=== PATIENT | female | born 1965 | race Caucasian/White ===

== ENCOUNTER → 2021-02-03 16:14 | Outpatient (CLI) | payer BC, SELFPAY ==
--- NOTE | ~2021-02-03 | MM_ITS ---
EXAMINATION: MM screening [facility] BI w alida HISTORY: Screening mammogram TECHNIQUE: Craniocaudal and mediolateral oblique 3-D tomosynthesis images were obtained and synthetic 2-D images were generated. CAD analysis was submitted and interpreted. COMPARISON: 17/08/2018, 06/05/2017 bilateral screening mammogram examinations BREAST PARENCHYMAL COMPOSITION: The breasts are almost entirely fatty. FINDINGS: There is no evidence of suspicious mass, calcification, or architectural distortion to sugg est malignancy in either breast. There has been no suspicious interval change. IMPRESSION: 1. No mammographic evidence of malignancy. 2. Recommend routine screening mammography in one year. BI-RADS Category 1: Negative Reviewed, dictated and finalized at location A. ERY ASSISTANT
== END ==
PROVIDERS: Visit Provider Obstetrics & Gynecology
DX: Z12.31 Encounter for screening mammogram for malignant neoplasm of breast (principal)
CPT/HCPCS: 77063; 77067

== ENCOUNTER → 2022-08-08 15:43 | Outpatient (CLI) | payer BC, SELFPAY ==
--- NOTE | ~2022-08-08 | MM_ITS ---
EXAMINATION: MM screening [facility] BI w alida HISTORY: Screening mammogram TECHNIQUE: Craniocaudal and mediolateral oblique 3-D tomosynthesis images were obtained and synthetic 2-D images were generated. CAD analysis was submitted and interpreted. COMPARISON: 02/03/2021, 08/27/2018, 06/05/2017 BREAST PARENCHYMAL COMPOSITION: The breasts are almost entirely fatty. FINDINGS: No suspicious mass, calcification, or architectural distortion are identified in either tomasz ast to suggest malignancy. There has been no suspicious interval change. IMPRESSION: 1. No mammographic evidence of malignancy. 2. Recommend routine screening mammography in one year. BI-RADS Category 1: Negative Reviewed, dictated and finalized at location A.
== END ==
PROVIDERS: PCP Obstetrics & Gynecology; Visit Provider Obstetrics & Gynecology
DX: Z12.31 Encounter for screening mammogram for malignant neoplasm of breast (principal)
CPT/HCPCS: 77063; 77067

== ENCOUNTER 2023-08-22 08:51 | Outpatient (CLI) | payer BC, SELFPAY ==
--- NOTE | ~2023-08-22 | MM_ITS ---
EXAMINATION: MM screening [facility] w al[place] HISTORY: Screening TECHNIQUE: Craniocaudal and mediolateral oblique 3-D tomosynthesis images were obtained and synthetic 2-D images were generated. CAD analysis was submitted and interpreted. COMPARISON: Comparison to multiple prior studies sequentially, with oldest reviewed study dated 04/08. BREAST PARENCHYMAL COMPOSITION: The breasts are almost entirely fatty. FINDINGS: There is no evidence of suspicious mass, calcification, or architectural distortion to sugg est malignancy in either breast. There has been no suspicious interval change. IMPRESSION: 1. No mammographic evidence of malignancy. 2. Recommend routine screening mammography in one year. BI-RADS Category 1: Negative Reviewed, dictated and finalized at location B.
== END 2023-08-22 08:52 | disposition home or self-care (01) ==
PROVIDERS: PCP Obstetrics & Gynecology; Visit Provider Obstetrics & Gynecology
DX: Z12.31 Encounter for screening mammogram for malignant neoplasm of breast (principal)
CPT/HCPCS: 77063; 77067

== ENCOUNTER 2024-06-17 10:50 | Outpatient (CLI) | payer BC, SELFPAY ==
--- OUTSIDE RECORDS SUMMARY | 2024-06-17 12:22 | XMS_ITS | Referral Summary ---
Author Organization [address] Address [address] [place] [id number] Care Team Providers Care Hospitality Associate Name Role Phone Abraham Velázquez MD Primary Care Provider [phone] Allergies Active Allergy Reactions Criticality Noted Date Comments Ibuprofen Hives Medium 01/10/2021 Medications cholestyramine (QUESTRAN) 4 gram packet USE 1 PACKET IN LIQUID DIRECTED ONCE TO TWICE DAILY IF NEEDED. 1 Active cetirizine (ZyrTEC) 10 mg tablet Take 10 mg by mouth daily Active cyanocobalamin (Vitamin B-12) 250 mcg tablet Take 250 mcg by mouth daily Active cholecalciferol (cholecalcifero l) 400 unit capsule Active wheat dextrin 3 gram/3.8 gram powder Take by mouth Active fluticasone propionate (FLONASE) 50 mcg/actuation nasal sprayIndication s:Allergic Rhinitis Administer 2 sprays into each nostril daily 18.2 mL 3 1 Active famotidine (PEPCID) 40 mg tablet Take 40 mg by mouth daily 2 Active Lacto.acidophil us-Bif.animalis 32 billion cell capsule Take 1 tablet by mouth daily Active pantoprazole DR (PROTONIX) 40 mg EC tabletIndicatio ns:Laryngophary ngeal reflux (LPR) Take 1 tablet (40 mg total) by mouth 2 (two) times a day 60 tablet 3 2 Active Active Problems Problem Noted Date Diagnosed Date Post-nasal drip 03/07/2021 Laryngopharyngeal reflux (LPR) 01/10/2021 Social History Tobacco Use Types Packs/Day Years Used Date Smoking Tobacco: Former Smokeless Tobacco: Never Personal Safety Answer Date Recorded Getting School Help Needed Not on file 06/08 Comments Unknown Sex and Gender Information Value Date Recorded Sex Assigned at Not on file Legal Sex Female 7:59 PM [address] Gender Identity Not on file Sexual Orientation Not on file Last Filed Vital Signs Vital Sign Reading Time Taken Comments Blood Pressure - - Pulse - - Temperature 36.2 C (97.2 F) 06/06/2021 1:38 PM CDT Respiratory Rate 17 01/10/2021 1:58 PM CDT Oxygen Saturation - - Inhaled Oxygen Concentration - - Weight 95.3 kg (210 lb) 06/06/2021 1:38 PM CDT Height 170.2 cm (5' 7 ) 06/06/2021 1:38 PM CDT Body Mass Index 32.89 06/06/2021 1:38 PM CDT Plan of Treatment Not on file Insurance [facility] Care Teams Hospitality Associate Relationship Specialty Start Date End Date Abraham Velázquez MD [address] [address] [place], [place] [id number] PCP - General Internal Medicine 01/02/21
--- OUTSIDE RECORDS SUMMARY | 2024-06-17 12:22 | XMS_ITS | Encounter Summary ---
Author Organization [facility] Address Formerly [facility] [place] [address] Care Team Providers Care Plate Preparer Name Role Phone Ronald Mckeon MD Primary Care Provider [phone] Sarita Munguia Primary Care Provider [phone] Encounter Details Date Type Department Care Team (Late st Contact Info) Description 07/27/2020 Prep for Procedure [facility] [address] [place] [address] Yaron García MD [address] [facility] [address] [place] [address] Social History Tobacco Use Types Packs/Day Years Used Date Smoking Tobacco: Former Cigarettes 0 07/28/1979 - 07/27/1981 Smokeless Tobacco: Never Humiliation, Afraid, Rape, and Kick questionnair e Answer Date Recorded Within the last year, have y ou been afraid of your partner or ex-partner? Patient declined 07/27/2020 Within the last year, have y ou been humiliated or emotionally abused in other ways by your partner or ex-partner? Patient declined 07/27/2020 Within the last year, have y ou been kicked, hit, slapped, or otherwise physically hurt by your partner or ex-partner? Patient declined 07/27/2020 Within the last year, have y ou been raped or forced to have any kind of sexual activity by your partner or ex-partner? Patient declined 07/27/2020 Social Connection and Isolation Panel [NHANES] A nswer Date Recorded In a typical week, how many times do you talk on the phone with family, friends, or neighbors? Patient declined 07/27/2020 How often do you get togethe r with friends or relatives? Patient declined 07/27/2020 How often do you attend yarsanism or buddhism serv ices? Patient declined 07/27/2020 Do you belong to any clubs o r organizations such as yarsanism groups, unions, fraternal or athletic groups, or school groups? Patient declined 07/27/2020 How often do you attend meet ings of the clubs or organizations you belong to? Patient declined 07/27/2020 Are you , , di vorced, , never , or living with a partner? Patient declined 07/27/2020 Overall Financial Resource Strain (CARDIA) Answe r Date Recorded How hard is it for you to pa y for the very basics like food, housing, medical care, and heating? Not hard at all 07/27/2020 [facility] - Occupational Stress Questionnaire Answer Date Recorded Do you feel stress - tense, restless, nervous, or anxious, or unable to sleep at night because your mind is troubled all the time - these days? Not at all 07/27/2020 Exercise Vital Sign Answer Date Recorde d On average, how many days pe r week do you engage in moderate to strenuous exercise (like a brisk walk)? 0 days 07/27/2020 On average, how many minutes do you engage in exercise at this level? 0 min 07/27/2020 Hunger Vital Sign Answer Date Recorded Within the past 12 months, y ou worried that your food would run out before you got the money to buy more. Never true 07/28/19 21 Within the past 12 months, t he food you bought just didn't last and you didn't have money to get more. Never true 07/27/2020 PRAPARE - Transportation Answer Date Re corded In the past 12 months, has l ack of transportation kept you from medical appointments or from getting medications? No 07/2020 In the past 12 months, has l ack of transportation kept you from meetings, work, or from getting things needed for daily living? No 07/27/2020 Comments Unknown Sex and Gender Information Value Date Recorded Sex Assigned at Not on file Legal Sex Female 7:35 PM CDT Gender Identity Not on file Sexual Orientation Not on file documented as of this encounter Plan of Treatment Not on file documented as of this encounter Results * PRE-SURGICAL/PRE-PROCEDURE CORONAVIRUS (COVID 19) (08/01/2020 7:58 AM CDT) CORONAVIRUS SARS COV 2 PCR (RESP) NOT DETECTED NOT DETECTED 08/02/2020 3:26 PM CDT Clinical Data [facility] Comment: A Not Detected (negative) test result for this test means that SARS-CoV-2 RNA was not present in the specimen above the limit of detection. A negative result does not rule out the possibility of COVID-19 and should not be used as the sole basis for treatment or patient management decisions. If COVID-19 is still suspected, based on exposure history together with other clinical findings, re-testing should be considered in consultation with public health authorities. Laboratory test results should always be considered in the context of clinical observations and epidemiological data in making a final diagnosis and patient management decisions. This patient specimen was tested using an FDA EUA pooling method. Patient specimens with low viral loads may not be detected in sample pools due to the decreased sensitivity of pooled testing. Please review the Fact Sheets and FDA authorized labeling available for health care providers and patients using the following websites: https://www.[employer]com/home/Covid-19/HCP/NAAT/fact-sheet2 https://www.[employer]/home/Covid-19/Patients/NAAT/ fact-sheet2 This test has been authorized by the FDA under an Emergency Use Authorization (EUA) for use by authorized laboratories. Due to the current public health emergency, [facility] is receiving a high volume of samples from a wide variety of swabs and media for COVID-19 testing. In order to serve patients during this public health crisis, samples from appropriate clinical sources are being tested. Negative test results derived from specimens received in non-commercially manufactured viral collection and transport media, or in media and sample collection kits not yet authorized by FDA for COVID-19 testing should be cautiously evaluated and the patient potentially subjected to extra precautions such as additional clinical monitoring, including collection of an additional specimen. Methodology: Nucleic Acid Amplification Test (NAAT) includes RT-PCR or TMA Additional information about COVID-19 can be found at the [facility] website: www.[employer]/Covid19. Test performed at [facility] [address] [place] [address] Director: GILLES MONTANA DO,MPH FIRST TEST UNKNOWN 08/01/2020 7:44 AM CDT [facility] EMPLOYED IN HEALTHCARE NO 08/01/2020 7:44 AM CDT [facility] SYMPTOMATIC DEFINED BY CDC NO 08/01/2020 7:44 AM CDT [facility] DATE OF SYMPTOM ONSET UNKNOWN 08/04/2020 10:13 AM CDT [facility] HOSPITALIZATION STATUS NO 08/01/2020 7:44 AM CDT [facility] PATIENT IN ICU NO 08/01/2020 7:44 AM CDT [facility] RESIDENT OF [facility] NO 08/01/2020 7:44 AM CDT [facility] NOT 08/01/2020 7:44 AM CDT [facility] PATIENT'S RACE WHITE OR 08/01/2020 7:44 AM CDT [facility] ETHNICITY NONHISPANIC 08/01/2020 7:44 AM CDT [facility] SOURCE (QST) NASOPHARYNGEAL SWAB 08/01/2020 7:44 AM CDT [facility] NASOPHARYNGEAL SWAB / Unknown 08/01/2020 7:58 AM CDT us Yaron García MD MICROBIOLOGY - GENERAL ROHAN TRAORE Final Result [facility] [address] [place] [address], [facility] [employer] [facility] [address] [place] [address], documented in this encounter Visit Diagnoses Diagnosis Pre-op testing- Primary Preoperative examination, unspecified documented in this encounter Additional Health Concerns Infection Onset Date Last Indicated Resolved Time COVID-19 Rule Out 08/01/2020 08/01/2020 08/02/2020 3:26 PM CDT COVID-19 Rule Out 04/17/2021 04/17/2021 04/18/2021 6:02 PM RETAIL SELLING SPECIALIST COVID-19 Confirmed 04/17/2021 04/17/2021 12:32 AM RETAIL SELLING SPECIALIST documented as of this encounter Care Teams Plate Preparer Relationship Specialty Start Date End Date Ronald Mckeon MD [address] [address] PCP - General FAMILY PRACTICE 08/29/18 07/31/20 Sarita Munguia PA [address] [place] [id number] PCP - General PHYSICIAN DIRECTOR SOCIAL WELFARE 06/01/24 documented as of this encounter
--- OUTSIDE RECORDS SUMMARY | 2024-06-17 12:22 | XMS_ITS | Clinical Summary ---
Author Organization [facility] Address [facility] [place] [address] Care Team Providers Care Radiological Health Specialist Name Role Phone Sarita Munguia Primary Care Provider [phone] Allergies Active Allergy Reactions Criticality Noted Date Comments Ibuprofen Hives 07/27/2020 Medications cetirizine (ZYRTEC ALLERGY) 10 MG tablet Take by mouth nightly. Active pseudoephedrine 30 MG tablet Take 30 mg by mouth daily as needed for Congestion. Active vitamin B-12 (CYANOCOBALAMIN ) 1000 mcg tablet Take 1,000 mcg by mouth daily. Takes sublingual Active Cholecalciferol (VITAMIN D3) 50 MCG (2000 UT) Tab Take 1 tablet by mouth daily. Active fiber Powder Take 5 g by mouth daily. Takes 1/2 teaspoon daily Active Probiotic Product ([employer]) Cap Take 1 tablet by mouth daily. Active Active Problems Problem Noted Date Diagnosed Date Neck pain 10/23/2018 Allergies Encounters Date Type Department Care Team Description 06/10/2024 7:48 AM CDT - 06/10/2024 11:59 PM CDT Hospital Encounter [facility] Ultrasound [address] [place] [address] Crystal Amato PA-C Discharge Disposition: Home or Self Care (Routine Discharge) 06/10/2024 Travel 06/01/2024 7:12 PM CDT - 06/01/2024 9:53 PM CDT Emergency [facility] Emergency Room [address] [place], [place] [id number] Ruddy Elizabeth MD Hypertension Discharge Disposition: Home or Self Care (Routine Discharge) 06/01/2024 Travel from Last 3 Months Social History Tobacco Use Types Packs/Day Years [...] declined 07/27/2020 How often do you attend jewish or mosque serv ices? Patient declined 07/27/2020 Do you belong to any clubs o r organizations such as jewish groups, unions, fraternal or athletic groups, or [...] and heating? Not hard at all 07/27/2020 [facility] [place] [facility] Occupat ional Health - Occupational Stress [...] needed for daily living? No 07/27/2020 Comments No Sex and Gender Information Value Date Recorded Sex Assigned at Not on file Legal Sex Female 7:35 PM CDT Gender Identity Not on file Sexual Orientation Not on file Last Filed Vital Signs Vital Sign Reading Time Taken Comments Blood Pressure 163/88 06/01/2024 9:30 PM CDT Pulse 123 06/01/2024 9:30 PM CDT Temperature 36.4 C (97.6 F) 06/01/2024 9:30 PM CDT Respiratory Rate 22 06/01/2024 9:30 PM CDT Oxygen Saturation 98% 06/01/2024 9:30 PM CDT Inhaled Oxygen Concentration - - Weight 92.5 kg (204 lb) 06/01/2024 7:12 PM CDT Height 154.3 cm (5' 0.75 ) 06/01/2024 7:12 PM CD T Body Mass Index 38.86 06/01/2024 7:12 PM CDT Plan of Treatment Health Maintenance Due Date Last Done Comments Cervical Cancer Screening Pa p Smear (Age 30 to 64) Every 3 Years 1965 Annual Physical 11/19/1966 Hepatitis C 11/19/1981 DTaP, Tdap and Td Vaccines ( 1 - Tdap) 11/19/1982 Cervical Cancer Screening Pa p with HPV Testing (Age 30 to 64) Every 5 Years 11/19/1993 Cervical Cancer Screening wi th HPV 11/19/1993 Mammogram Screening 2003 Zoster Vaccines (1 of 2) 11/19/2013 COVID-19 Vaccine (2023-2 5 season) 2023 Influenza Adult (#1) 2023 Colorectal Cancer Screening Colonoscopy (10 Years) 08/04/2030 08/04/2020, 08/04/2020 RSV Immunization or 60+ Years (1 - 1-dose 75+ series) 11/19/2038 Meningococcal B Vaccine Aged Out No l onger eligible based on patient's age to complete this topic Meningococcal Vaccine Aged Out No francisco j kavya eligible based on patient's age to complete this topic Pneumococcal Vaccine: Pediatrics (0 to 5 Years) and At-Risk Patients (6 to 64 Years) Aged Out No longer eligible b ased on patient's age to complete this topic RSV Immunizations Under 20 Months Aged Out No longer eligible b ased on patient's age to complete this topic Procedures Procedure Name Priority Date/Time Associated Diagnosis Comments US RANDEE DUPLEX UP EXT RT Routine 06/10/2024 8:44 AM CDT Pain in left arm Other specified abnormal findings of blood chemistry CTA CHEST PE PROTOCOL STAT 06/01/2024 9:03 PM CDT D-DIMER, QUANTITATIVE STAT 06/01/2024 8:08 PM CDT TROPONIN, QUANT STAT 06/01/2024 8:08 PM CDT COMPREHENSIVE METABOLIC PANEL STAT 06/01/2024 8:08 PM CDT CBC W/DIFF AUTOMATED STAT 06/01/2024 8:08 PM CDT ECG 12-LEAD Routine 06/01/2024 7:22 PM CDT COLONOSCOPY Routine 08/04/2020 7:58 AM CDT from Last 3 Months or Most Recently Relevant to Health Maintenance Results * US RANDEE DUPLEX UP EXT RT (06/10/2024 8:44 AM CDT) Anatomical Region Laterality Modality NA Ultrasound 06/11/2024 7:28 AM CDT Impressions 06/11/2024 7:30 AM CDT IMPRESSION: No evidence of right upper extremity DVT. Ordered By: CRYSTAL AAMTO Interpreted By: Mahesh Schultz, 06/11/2024 7:28 AM Narrative 06/11/2024 7:30 AM CDT [facility] [id number] [place] [address]. [place] [address] IMAGING STUDIES: US RANDEE DUPLEX UP EXT RT DATE: 06/10/2024 7:51 AM CLINICAL HISTORY: Pain in right arm . COMPARISON: No Comparisons. FINDINGS: No evidence of DVT within the right jugular vein, right subclavian vein or right axillary vein. No evidence of DVT within the right brachial vein, basilic vein or cephalic vein. No DVT within the right radial vein or right ulnar vein. Procedure Note Antonio Schultz MD - 06/11/2024 [facility] [id number] [place] [address]. [place] [address] IMAGING STUDIES: US RANDEE DUPLEX UP EXT RT DATE: 06/10/2024 7:51AM CLINICAL HISTORY: Pain in right arm . COMPARISON: No Comparisons. FINDINGS: No evidence of DVT within the right jugular vein, right subclavian veinor right axillary vein. No evidence of DVT within the right brachial vein, basilic vein orcephalic vein. No DVT within the right radial vein or right ulnar vein. IMPRESSION: No evidence of right upper extremity DVT. Ordered By: CRYSTAL AMATO Interpreted By: Mahesh Schultz, 06/11/2024 7:28 AM us Crystal Amato PA-Cassy ULTRASOUND Final Resu lt * CTA CHEST PE PROTOCOL (06/01/2024 9:03 PM CDT) Anatomical Region Laterality Modality Chest Computed Tomogra phy 06/01/2024 9:13 PM CDT Impressions 06/01/2024 9:24 PM CDT IMPRESSION: 1. No pulmonary embolus. 2. Mosaic attenuation seen throughout the lungs which may represent air trapping/small airways disease. Dictated By: Horace Fallon MD on 06/01/2024 9:13 PM The attending radiologist has reviewed the image(s) and agrees with the content of this report. Ordered By: RUDDY ELIZABETH Interpreted By: Horace Fallon MD, 06/01/2024 9:13 PM Narrative 06/01/2024 9:24 PM CDT [facility] [address] [facility]. [place] [id number] Examination: CTA CHEST PE PROTOCOL Exam time: 06/01/2024 8:52 PM Clinical history: Palpitations, elevated d-dimer. Comparison: CTA chest 03/29/2012. Technique: A CTA of the chest was performed according to the pulmonary embolism protocol after uneventful administration of 75 mL Isovue-370. Coronal MIPS were created and reviewed. Coronal and sagittal reformatted images were reviewed. A dose lowering technique was used for this procedure, which may include, but is not limited to, dose reduction technique, automated exposure control, iterative reconstruction, ALARA (As Low As Reasonably Achievable), or Image Gently techniques. Findings: The pulmonary arteries are well-opacified. No filling defects are seen within the pulmonary arteries. The aorta and main pulmonary arteries are normal in caliber. No focal consolidation is seen within the lungs. There is mosaic attenuation which can be seen with small airways disease and/or air trapping. No pleural effusions. No central airway abnormality. The heart is normal in size. No pericardial effusion. No thoracic lymphadenopathy is seen. There are calcified left hilar lymph nodes from old granulomatous disease. No acute abnormality seen in the visualized upper abdomen. The gallbladder surgically absent. Benign calcified granulomas are seen throughout the spleen. Colonic diverticula are noted in the visualized colon. Partially visualized cervical fusion hardware. No acute osseous abnormality. No destructive osseous lesion. Multilevel spondylosis is seen throughout the visualized spine. Procedure Note Tuan Saldivar MD - 06/01/2024 [facility] [address] [place] [address] Examination: CTA CHEST PE PROTOCOL Exam time: 06/01/2024 8:52 PM Clinical history: Palpitations, elevated d-dimer. Comparison: CTA chest 03/29/2012. Technique: A CTA of the chest was performed according to the pulmonaryembolism protocol after uneventful administration of 75 mL Isovue-370.Coronal MIPS were created and reviewed. Coronal and sagittal reformattedimages were reviewed. A dose lowering technique was used for thisprocedure, which may include, but is not limited to, dose reductiontechnique, automated exposure control, iterative reconstruction, ALARA (AsLow As Reasonably Achievable), or Image Gently techniques. Findings: The pulmonary arteries are well-opacified. No filling defects are seenwithin the pulmonary arteries. The aorta and main pulmonary arteries arenormal in caliber. No focal consolidation is seen within the lungs. There is mosaicattenuation which can be seen with small airways disease and/or airtrapping. No pleural effusions. No central airway abnormality. The heartis normal in size. No pericardial effusion. No thoracic lymphadenopathy isseen. There are calcified left hilar lymph nodes from old granulomatousdisease. No acute abnormality seen in the visualized upper abdomen. The gallbladdersurgically absent. Benign calcified granulomas are seen throughout thespleen. Colonic diverticula are noted in the visualized colon. Partially visualized cervical fusion hardware. No acute osseousabnormality. No destructive osseous lesion. Multilevel spondylosis is seenthroughout the visualized spine. IMPRESSION: 1. No pulmonary embolus. 2. Mosaic attenuation seen throughout the lungs which may represent airtrapping/small airways disease. Dictated By: Horace Fallon MD on 06/01/2024 9:13 PM The attending radiologist has reviewed the image(s) and agrees with thecontent of this report. Ordered By: RUDDY ELIZABETH Interpreted By: Horace Fallon MD, 06/01/2024 9:13 PM us Ruddy Elizabeth MD CT Final Resu lt * (ABNORMAL) COMPREHENSIVE METABOLIC PANEL (06/01/2024 8:08 PM CDT) [facility] GLUCOSE 105(H) 70 - 99 MG/DL 06/01/2024 8:35 PM CDT [facility] BUN 7 7 - 18 MG/DL 06/01/2024 8:35 PM CDT [facility] CREATININE S/P/B 0.74 0.55 - 1.02 MG/DL 06/01/2024 8:35 PM CDT [facility] SODIUM S/P/B 141 136 - 145 MMOL/L 06/01/2024 8:35 PM CDT [facility] POTASSIUM S/P/B 3.9 3.5 - 5.1 MMOL/L 06/01/2024 8:35 PM CDT [facility] CHLORIDE S/P/B 102 100 - 108 MMOL/L 06/01/2024 8:35 PM T [facility] CO2 27.8 21 - 32 MMOL/L 06/01/2024 8:35 PM CDT [facility] CALCIUM S/P/B 9.3 8.5 - 10.1 MG/DL 06/01/2024 8:35 PM T [facility] BILIRUBIN TOTAL S/P/B 0.4 0.2 - 1.2 MG/DL 06/01/2024 8:35 PM T [facility] TOTAL PROTEIN S/P/B 7.5 6.4 - 8.2 G/DL 06/01/2024 8:35 PM T [facility] ALBUMIN S/P/B 4.0 3.4 - 5.0 G/DL 06/01/2024 8:35 PM T [facility] AST 21 15 - 37 U/L 06/01/2024 8:35 PM T [facility] ALT 21 14 - 55 U/L 06/01/2024 8:35 PM CDT [facility] ALKALINE PHOSPHATASE S/P/B 109 50 - 136 U/L 06/01/2024 8:35 PM CDT [facility] ANION GAP 11.2 5 - 15 MMOL/L 06/01/2024 8:35 PM CDT [facility] BUN CREATININE RATIO 9.5 6 - 26 06/01/2024 8:35 PM CDT [facility] A/G RATIO 1.1 1.0 - 2.0 RATIO 06/01/2024 8:35 PM CDT [facility] GFR ESTIMATE >90 >90 ML/MIN/1.7 3 M2 06/01/2024 8:35 PM CDT [facility] Comment: NOTE: eGFR is not calculated for patients <18 years of age. This is an estimated GFR calculation using the new CKD EPI creatinine equation without race and so does not require a correction factor for race. This estimated GFR should not be used for calculating drug doses. 06/01/2024 8:08 PM CDT Ruddy Elizabeth MD LABORATORY Final Resu lt [facility] [address] [place] [address], * (ABNORMAL) D-DIMER, QUANTITATIVE (06/01/2024 8:08 PM CDT) [facility] D-DIMER 997(H) 0 - 500 ng{FEU}/mL 06/01/2024 8:22 PM CDT [facility] Comment: D-Dimer values less than or equal to 500 ng/mL FEU have a negative predictive value of >95% for exclusion of deep vein thrombosis and pulmonary embolism. In patients over 50 (who tend to have higher normal baseline D-Dimer values), recent studies suggest age-adjusted D-Dimer cutoff values (calculated as: age [years] x 10 ng/mL) result in equivalent outcomes and no additional false negative findings. 06/01/2024 8:08 PM CDT us Ruddy Elizabeth MD LABORATORY Final Resu lt [facility] [address] [place] [address], * (ABNORMAL) CBC W/DIFF AUTOMATED (06/01/2024 8:08 PM CDT) WBC 10.38 4.4 - 11.0 x10'3/uL 06/01/2024 8:14 PM CDT [facility] RBC 4.42(L) 4.50 - 5.10 x10'6/uL 06/01/2024 8:14 PM CDT [facility] HGB 13.0 12.3 - 15.3 G/DL 06/01/2024 8:14 PM CDT [facility] HCT 39.7 35.9 - 44.6 % 06/01/2024 8:14 PM CDT [facility] MCV 89.8 80.0 - 96.0 FL 06/01/2024 8:14 PM CDT [facility] MCH 29.4 25.3 - 30.9 PG 06/01/2024 8:14 PM CDT [facility] MCHC 32.7 31.0 - 34.1 G/DL 06/01/2024 8:14 PM CDT [facility] RDW 13.3 12.4 - 15.1 % 06/01/2024 8:14 PM CDT [facility] PLT 246 151 - 353 x10'3/uL 06/01/2024 8:14 PM CDT [facility] MPV 11.3 9.6 - 12.0 FL 06/01/2024 8:14 PM CDT [facility] RBC MORPHOLOGY NORMAL 06/01/2024 8:14 PM CDT [facility] PLT MORPH. NORMAL 06/01/2024 8:14 PM CDT [facility] WBC MORPHOLOGY NORMAL 06/01/2024 8:14 PM CDT [facility] LYMPHOCYTES % 23.0 15.8 - 45.0 % 06/01/2024 8:14 PM CDT [facility] NEUTROPHILS % 68.6 42.1 - 71.9 % 06/01/2024 8:14 PM CDT [facility] MONOCYTES % 6.2 5.7 - 12.5 % 06/01/2024 8:14 PM CDT [facility] EOSINOPHILS 1.0 0.0 - 5.6 % 06/01/2024 8:14 PM CDT [facility] BASOPHILS 0.8 0.0 - 1.3 % 06/01/2024 8:14 PM CDT [facility] ABS. NEUTROPHILS 7.13(H) 1.40 - 6.00 x10'3/uL 06/01/2024 8:14 PM CDT [facility] IMMATURE GRANS % 0.4 0.0 - 0.5 % 06/01/2024 8:14 PM CDT [facility] ABS. LYMPHOCYTES 2.39 0.80 - 4.70 x10'3/uL 06/01/2024 8:14 PM CDT [facility] 06/01/2024 8:08 PM CDT us Ruddy Elizabeth MD LABORATORY Final Resu lt [facility] [address] [place] [address], * TROPONIN, QUANT (06/01/2024 8:08 PM CDT) TROPONIN I HIGH SENSITIVITY 5 0 - 50 ng/L 06/01/2024 8:32 PM CDT [facility] Comment: HIGH DOSES OF BIOTIN, TROPONIN-SPECIFIC AUTOANTIBODIES, AND ANTIBODY THERAPY CONTAINING HAMA MAY INTERFERE WITH THIS TEST RESULT. CORRELATION TO CLINICAL HISTORY AND PRESENTATION RECOMMENDED. 06/01/2024 8:08 PM CDT us Ruddy Elizabeth MD LABORATORY Final Resu lt [facility] [address] [place] [address], * ECG 12 lead (06/01/2024 7:22 PM CDT) 06/01/2024 7:22 PM CDT Narrative [facility] RAD - 06/02/2024 6:25 AM CDT [facility] Test Date: 2024-06-01 Pat Name: PHILLIP OSHEA Department: 85 Room: [facility] Gender: Female Oracle Wms Consultant: : 1965 Requested By: RUDDY ELIZABETH Order Number: [id number] Reading MD: Avery You Measurements Intervals Dawson Rate: 118 P: 27 MN: 100 QRS: 58 QRSD: 97 T: -14 QT: 332 QTc: 466 Interpretive Statements SINUS TACHYCARDIA WITH SHORT MN INTERVAL LOW QRS VOLTAGE IN PRECORDIAL LEADS [QRS DEFLECTION < 1.0 mV IN CHEST LEADS] INCOMPLETE RIGHT BUNDLE BRANCH BLOCK [90+ ms QRS DURATION, TERMINAL R IN V1/V2, 40+ ms S IN I/aVL/V4/V5/V6] NONSPECIFIC ST & T-WAVE ABNORMALITY No previous ECG available for comparison Procedure Note Avery You MD - 06/02/2024 [facility] Test Date: 2024-06-01 Pat Name: PHILLIP OSHEA Department: 85 Room: [facility] Gender: Female [employer] Wms Consultant: : 1965 Requested By: RUDDY ELIZABETH Order Number: [id number] Reading MD: Avery You Measurements Intervals Dawson Rate: 118 P: 27 MN: 100 QRS: 58 QRSD: 97 T: -14 QT: 332 QTc: 466 Interpretive Statements SINUS TACHYCARDIA WITH SHORT MN INTERVAL LOW QRS VOLTAGE IN PRECORDIAL LEADS [QRS DEFLECTION < 1.0 mV IN CHESTLEADS] INCOMPLETE RIGHT BUNDLE BRANCH BLOCK [90+ ms QRS DURATION, TERMINAL RIN V1/V2, 40+ ms S IN I/aVL/V4/V5/V6] NONSPECIFIC ST & T-WAVE ABNORMALITY No previous ECG available for comparison us Ruddy Elizabeth MD ECG ORDERABLES Final [facility]u lt [facility] RAD from Last 3 Months Insurance Care Teams Radiological Health Specialist Relationship Specialty Start Date End Date Sarita Munguia PA [address] [place] [address] PCP - General PHYSICIAN DRAGLINE OILER 06/01/24
--- OUTSIDE RECORDS SUMMARY | 2024-06-17 12:22 | XMS_ITS | Clinical Summary ---
Author Organization [address] Address [address] [place] [id number] Care Team Providers Care Bottle Sorter Name Role Phone Abraham Velázquez MD Primary Care Provider [phone] Allergies Active Allergy Reactions Criticality Noted Date [...] Post-nasal drip 03/07/2021 Laryngopharyngeal reflux (LPR) 01/10/2021 Surgical History Surgery Date Site/Laterality Comments CHOLECYSTECTOMY CERVICAL FUSION CARPAL TUNNEL RELEASE TONSILLECTOMY Medical History Medical History Date Comments Allergic rhinitis Family History Medical History Relation Name Comments Diabetes Maternal Grandmother Thyroid disease Mother Cancer Mother's Brother Diabetes Mother's Brother Relation Name Status Comments Maternal Grandmother Mother Mother's Brother Social History Tobacco Use Types Packs/Day Years Used Date Smoking Tobacco: Former Smokeless Tobacco: Never Personal Safety Answer Date Recorded Getting School Help Needed Not on file 06/08 Comments Unknown Sex and Gender Information Value Date Recorded Sex Assigned at Not on file Legal Sex Female 7:59 PM INTERNET RETAIL[employer] Gender Identity Not on file Sexual Orientation Not on file Obstetrics History Last Filed Vital Signs Vital Sign Reading [...] Plan of Treatment Not on file Insurance Care Teams Bottle Sorter Relationship Specialty Start Date End Date Abraham Velázquez MD [address] [place] [address] PCP - General Internal Medicine 01/02/21
== END 2024-06-17 10:51 | disposition home or self-care (01) ==
PROVIDERS: PCP Physician Assistant Medical; Visit Provider Physician Assistant Medical
DX: I49.9 Cardiac arrhythmia, unspecified (principal)
CPT/HCPCS: 93242